=== PATIENT | male | born 1985 ===

== ENCOUNTER 2017-01-07 16:12 | Emergency (ER) | payer MEDICAID ==
[~2017-01-07 16:12] MED LIST: IBUPROFEN600 M1 PO; NO HOME MEDICATION XX
== END 2017-01-07 16:30 ==
LOC: EDMED 16:12
DX: S86.912A Strain of unspecified muscle(s) and tendon(s) at lower leg level, left leg, initial encounter (principal); F17.200 Nicotine dependence, unspecified, uncomplicated; X58.XXXA Exposure to other specified factors, initial encounter